=== PATIENT | female | born 1995 | race Caucasian/White ===

== ENCOUNTER 2019-05-31 13:33 | Emergency (ER) | payer MEDICAID ==
[2019-05-31] MEDS: DEXAMETHASONE 10 MG/ML 1 ML INJ PO (14:02)
== END 2019-05-31 14:28 | disposition home or self-care (01) ==
LOC: FTE 13:33
DX: J06.9 Acute upper respiratory infection, unspecified (principal)
CPT/HCPCS: 99283; J1100